=== PATIENT | female | born 1975 | race Caucasian/White ===

== ENCOUNTER 2019-04-15 16:10 | Emergency (ER) | payer MEDICAID, OTHER ==
[~2019-04-15] VITALS: Ht 165.1 cm; Wt 100.0 kg
[~2019-04-15 16:10] MED LIST: MECL12.574 PO; ONDA4TAB14 PO
[2019-04-15 16:16] VITALS: Ht 165.1 cm; Wt 100.0 kg
[2019-04-15] MEDS ORDERED: ONDANSETRON (ODT) 4 MG TAB ODT STA ×2 (16:35→17:08)
[2019-04-15] MEDS ORDERED: MECLIZINE 12.5 MG TAB PO ONE ×2 (17:00→17:30)
[2019-04-15 19:06] VITALS: BP 120/83; PULSE 68; RESP 19
== END 2019-04-15 19:09 | disposition home or self-care (01) ==
LOC: E/R 16:10
DX: R42 Dizziness and giddiness (principal); R40.2142 Coma scale, eyes open, spontaneous, at arrival to emergency department; R40.2252 Coma scale, best verbal response, oriented, at arrival to emergency department
CPT/HCPCS: 70450; 81025; 82962; 93005; Z7502; Z7610